=== PATIENT | female | born 1960 | race Caucasian/White ===

== ENCOUNTER 2017-12-10 20:55 | Emergency (ER) | payer MEDICARE ==
[~2017-12-10] VITALS: Ht 170.2 cm; Wt 66.8 kg
[~2017-12-10 20:55] MED LIST: CELEBREX 200MG200 MG PO; DEMEROL; DILAUDID 2MG TAB2 MG PO; FENTANYL; INTRATHECAL PUMP IT; KETOROLAC10 MG PO; LYRICA200 MG PO; PERCOCET 500 MG1 TAB PO; PERCOCET PO; SKELAXIN800 MG PO; VALIUM 5MG T5 MG/TAB PO; fentanyl
[2017-12-10 21:00] VITALS: BP 137/68; TEMP 98.8
[2017-12-10] MEDS ORDERED: NORCO 325 MG-51 TAB PO (22:44)
[2017-12-10 23:10] VITALS: PULSE 95
== END 2017-12-10 23:10 | disposition home or self-care (01) ==
LOC: COL.ER 20:55
DX: M25.561 Pain in right knee (principal); F17.210 Nicotine dependence, cigarettes, uncomplicated
CPT/HCPCS: J1885

== ENCOUNTER → 2023-10-29 | Outpatient (CLI) | payer SELFPAY ==
[~2023-10-29] MED LIST changes: +Iohexol 300 - 10 ML VIAL IV ONE; +NORCO 325 MG-51 TAB PO
== END ==
LOC: COL.RAD 14:25
DX: M25.512 Pain in left shoulder (principal)
CPT/HCPCS: Q9967